=== PATIENT | male | born 1960 | race Caucasian/White ===

== ENCOUNTER 2017-11-21 10:30 | Emergency (ER) | payer OTHER ==
[~2017-11-21] VITALS: Ht 174.6 cm; Wt 90.6 kg
[2017-11-21 10:33] VITALS: TEMP 37.2; Ht 174.6 cm; Wt 90.6 kg
[2017-11-21 11:23] LABS: BASO % 0.2 %; BASO ABS # 0.02 K/uL (0-0.2); EOS % 1.1 %; EOS ABS # 0.12 K/uL (0-0.5); HEMATOCRIT 46.2 % (42-52); HEMOGLOBIN 16.3 g/dL (14.0-18.0); IG# 0.05 K/uL (0.00-0.02); LYMPH % 12.5 %; LYMPH ABS # 1.34 K/uL (1.2-3.4); MEAN CELL VOLUME 88.8 fL (80-100); MEAN CORPUSCULAR HEMOGLOBIN 31.3 pg (25-34); MEAN CORPUSCULAR HGB CONC 35.3 g/dl (32-36); MEAN PLATELET VOLUME 10.8 fL (7.4-10.4); MONO % 11.3 %; MONO ABS # 1.22 K/uL (0.11-0.59); NEUT % 74.4 %; PLATELET COUNT 197 K/uL (130-400); RED CELL DISTRIBUTION WIDTH CV 13.3 % (11.5-14.5); RED CELL DISTRIBUTION WIDTH SD 43.9 fL (36.4-46.3); WHITE BLOOD COUNT 10.75 K/uL (4.8-10.8)
[2017-11-21 11:32] LABS: CALCIUM 9.2 mg/dl (8.5-10.1); CREATININE 1.02 mg/dl (0.60-1.40); POTASSIUM 4.1 mmol/L (3.5-5.1)
--- NOTE | 2017-11-21 11:42 | DIAGNOSTIC IMAGING REPORT ---
L VENOUS DOPP LOWER EXT UNILAT CLINICAL HISTORY: 57 years-old Male presenting with LLE swelling . TECHNIQUE: Real-time grayscale and color and spectral Doppler ultrasound imaging of the veins of the left lower extremity was performed. Compression and augmentation were also utilized. COMPARISON: None. FINDINGS: Left: Common femoral vein: Patent. Greater saphenous vein: Patent. Deep femoral vein: Patent. Femoral vein: Patent. Popliteal vein: Patent. Calf veins: Patent. Other: At the proximal medial calf, and a 0.6 x 2.2 x 5.6 cm partially anechoic partially hypoechoic collection is noted. This does not demonstrate internal vascularity or peripheral hyperemia on color Doppler. This is likely contained within the muscle fascia suggesting intramuscular origin. IMPRESSION: 1. No evidence of deep venous thrombosis. 2. Findings suspicious for intramuscular hematoma at the proximal medial left calf. This may be contained within the gastrocnemius. Electronically signed by: Marino Fuentes M.D. 11/21/2017 11:41 AM Dictated Date/Time: 11/21/2017 11:39 AM
[2017-11-21 13:07] VITALS: BP 156/84; PULSE 82; O2SAT 98
--- NOTE | 2017-11-21 16:40 | EMERGENCY ROOM VISIT NOTE ---
History Report prepared by Daljit: Josué Mcnulty Under the Supervision of: Dr. Tito Boucher D.O. First contact with patient: 10:38 Chief Complaint: LEG PAIN,LEG INJURY Stated Complaint: LEG PAIN History of Present Illness The patient is a 57 year old male who presents to the Emergency Room with complaints of worsening pain and swelling in the left calf that began on Saturday , 3 days ago. The patient states that Saturday night he developed a "ache" and "soreness" in the left knee. When he woke up on Saturday he was unable to move the knee very well. He states that he can currently ambulate, but does so with a limp secondary to the "fullness" of the left calf. He denies any recent trauma to the left leg, travels, history of blood clots, or anticoagulation use. He has not had any recent surgeries. The patient denies any other headache, change in vision, fevers, chest pain, shortness of breath, nausea, vomiting, diarrhea, pain with urination, and melena. Source of History: patient Onset: 3 days ago Position: other (Left Calf ) Quality: ache, other (soreness, swelling) Timing: worsening Associated Symptoms: No chest pain, No SOB, No nausea, No vomiting Review of Systems See HPI for pertinent positives & negatives. A total of 10 systems reviewed and were otherwise negative. Past Medical & Surgical None pertinent stated Family History Cancer Diabetes mellitus Heart disease Hypertension Social History Smoking Status: Current Every Day Smoker Marital Status: Current/Historical Medications No Active Prescriptions or Reported Meds Allergies Coded Allergies: No Known Allergies (Unverified , 11/21/17) Physical Exam Vital Signs Date Time Temp Pulse Resp B/P (MAP) Pulse Ox O2 Delivery O2 Flow Rate FiO2 11/21/17 13:07 82 18 156/84 98 11/21/17 12:40 82 18 156/84 98 Room Air 11/21/17 10:33 37.2 96 17 185/87 98 Room Air Physical Exam GENERAL: Sitting up in bed, alert, well appearing, well nourished, no distress, non-toxic EYE EXAM: normal conjunctiva. OROPHARYNX: no exudate, no erythema, lips, buccal mucosa, and tongue normal and mucous membranes are moist NECK: supple, no nuchal rigidity, no adenopathy, non-tender LUNGS: Clear to auscultation. Normal chest wall mechanics HEART: no murmurs, S1 normal and S2 normal ABDOMEN: abdomen soft, non-tender, normo-active bowel sounds, no masses, no rebound or guarding. SKIN: no rashes and no bruising UPPER EXTREMITIES: upper extremities are grossly normal. LOWER EXTREMITIES: Left calf is larger than right. DP 2/4 bilaterally. Full active and passive ROM of ankle, knee, and hip. No induration. NEURO EXAM: Normal sensorium, cranial nerves II-XII grossly intact, normal speech, no gross weakness of arms, no gross weakness of legs. Medical Decision & Procedures ER Provider Diagnostic Interpretation: Radiology results as stated below per my review and the radiologist's interpretation: L VENOUS DOPP LOWER EXT UNILAT CLINICAL HISTORY: 57 years-old Male presenting with LLE swelling . TECHNIQUE: Real-time grayscale and color and spectral Doppler ultrasound imaging of the veins of the left lower extremity was performed. Compression and augmentation were also utilized. COMPARISON: None. FINDINGS: Left: Common femoral vein: Patent. Greater saphenous vein: Patent. Deep femoral vein: Patent. Femoral vein: Patent. Popliteal vein: Patent. Calf veins: Patent. Other: At the proximal medial calf, and a 0.6 x 2.2 x 5.6 cm partially anechoic partially hypoechoic collection is noted. This does not demonstrate internal vascularity or peripheral hyperemia on color Doppler. This is likely contained within the muscle fascia suggesting intramuscular origin. IMPRESSION: 1. No evidence of deep venous thrombosis. 2. Findings suspicious for intramuscular hematoma at the proximal medial left calf. This may be contained within the gastrocnemius. Electronically signed by: Marino Fuentes M.D. 11/21/2017 11:41 AM Dictated Date/Time: 11/21/2017 11:39 AM Laboratory Results 11/21/17 11:05 Red Blood Count 5.20, Mean Corpuscular Volume 88.8, Mean Corpuscular Hemoglobin 31.3, Mean Corpuscular Hemoglobin Concent 35.3, Mean Platelet Volume 10.8, Neutrophils (%) (Auto) 74.4, Lymphocytes (%) (Auto) 12.5, Monocytes (%) (Auto) 11.3, Eosinophils (%) (Auto) 1.1, Basophils (%) (Auto) 0.2, Neutrophils # (Auto ) 8.00, Lymphocytes # (Auto) 1.34, Monocytes # (Auto) 1.22, Eosinophils # (Auto ) 0.12, Basophils # (Auto) 0.02 11/21/17 11:05 Test 11/21/17 11:05 White Blood Count 10.75 K/uL (4.8-10.8) Red Blood Count 5.20 M/uL (4.7-6.1) Hemoglobin 16.3 g/dL (14.0-18.0) Hematocrit 46.2 % (42-52) Mean Corpuscular Volume 88.8 fL (80-100) Mean Corpuscular Hemoglobin 31.3 pg (25-34) Mean Corpuscular Hemoglobin Concent 35.3 g/dl (32-36) Platelet Count 197 K/uL (130-400) Mean Platelet Volume 10.8 fL (7.4-10.4) Neutrophils (%) (Auto) 74.4 % Lymphocytes (%) (Auto) 12.5 % Monocytes (%) (Auto) 11.3 % Eosinophils (%) (Auto) 1.1 % Basophils (%) (Auto) 0.2 % Neutrophils # (Auto) 8.00 K/uL (1.4-6.5) Lymphocytes # (Auto) 1.34 K/uL (1.2-3.4) Monocytes # (Auto) 1.22 K/uL (0.11-0.59) Eosinophils # (Auto) 0.12 K/uL (0-0.5) Basophils # (Auto) 0.02 K/uL (0-0.2) RDW Standard Deviation 43.9 fL (36.4-46.3) RDW Coefficient of Variation 13.3 % (11.5-14.5) Immature Granulocyte % (Auto) 0.5 % Immature Granulocyte # (Auto) 0.05 K/uL (0.00-0.02) Prothrombin Time 10.0 SECONDS (9.0-12.0) Prothromb Time International Ratio 1.0 (0.9-1.1) Anion Gap 6.0 mmol/L (3-11) Est Creatinine Clear Calc Drug Dose 88.5 ml/min Estimated GFR () 94.1 Estimated GFR (Non- 81.2 BUN/Creatinine Ratio 14.7 (10-20) Calcium Level 9.2 mg/dl (8.5-10.1) Laboratory results per my review. ED Course ED COURSE: Vital signs were reviewed and showed hypertensive vitals. The patients medical record was reviewed The above diagnostic studies were performed and reviewed. ED treatments and interventions as stated above. 1040: The patient was evaluated in room C12B. A complete history and physical examination was performed. 1308: Upon reevaluation, the patient is resting in bed.I discussed my findings with the patient and he understands and agrees with the treatment plan. Based on the patients age, coexisting illnesses, exam and lab findings the decision to treat as an outpatient was made. The patient remained stable while under my care. The patient appeared well at the time of discharge. Medical Decision Differential diagnosis: Etiologies such as DVT, musculoskeletal, infection, joint effusion, trauma, lymphedema, idiopathic, CHF, as well as others were entertained. Patient is a 57-year-old male that presents to ER for swelling of his left calf was started on Saturday. He has been having pain in his calf as well. Denies any trauma. CBC along with BMP was unremarkable. INR was normal. Ultrasound shows likely an intramuscular hematoma. There is no signs of cellulitis. Patient was updated at bedside. Patient was discharged follow-up with PCP as an outpatient. Recommended rest, ice, elevation and Tylenol or Motrin as needed for pain. Discussed with Pt concerning signs and symptoms to watch out for. Pt was instructed to follow up with their PCP and discussed with the patient their option to return to the ED at anytime for persistent or worsening symptoms. The appropriate anticipatory guidance and out-patient management, including indications for return to the emergency department, were explained at length to the patient and understood. Medication Reconcilliation Current Medication List: was personally reviewed by me Blood Pressure Screening Patient's blood pressure: Elevated blood pressure Blood pressure disposition: Referred to PCP Impression Primary Impression: Hematoma Scribe Attestation The scribe's documentation has been prepared under my direction and personally reviewed by me in its entirety. I confirm that the note above accurately reflects all work, treatment, procedures, and medical decision making performed by me. Departure Information Dispostion Home / Self-Care Prescriptions No Active Prescriptions or Reported Meds Referrals No Doctor, Assigned (PCP) Forms HOME CARE DOCUMENTATION FORM, IMPORTANT VISIT INFORMATION Patient Instructions My [facility] Additional Instructions Please follow up with your primary care doctor with in the next 24 hours. Any worsening of your symptoms, please return to the ED immediately. This includes any fevers greater than 100.4, worsening pain, chest pain, shortness breath, persistent nausea, vomiting, unable to eat or drink, or any other concerning signs or symptoms from your standpoint. Please take Motrin or Tylenol as needed for pain.
== END 2017-11-21 13:08 | disposition home or self-care (01) ==
LOC: C.EDB 10:32 → C.EDC 13:08
DX: S80.12XA Contusion of left lower leg, initial encounter (principal); X58.XXXA Exposure to other specified factors, initial encounter; R03.0 Elevated blood-pressure reading, without diagnosis of hypertension; F17.200 Nicotine dependence, unspecified, uncomplicated